=== PATIENT | female | born 1955 | race Caucasian/White ===

== ENCOUNTER 2018-10-02 02:23 | Emergency (ER) | payer BC, OTHER ==
[~2018-10-02] VITALS: Ht 172.7 cm; Wt 81.6 kg
[2018-10-02 03:50] LABS: BASOPHILS % (AUTO) 0 % (0-10); EOSINOPHILS % (AUTO) 0 % (0-10); HEMATOCRIT 36 % (35-52); HEMOGLOBIN 11.3 G/DL (11.5-16.0); LYMPHOCYTES # (AUTO) 1.9 X 10^3 (1.0-4.0); LYMPHOCYTES % (AUTO) 33 % (12-44); MEAN CORPUSCULAR HEMOGLOBIN 26 PG (25-34); MEAN CORPUSCULAR HGB CONC 31 G/DL (32-36); MEAN CORPUSCULAR VOLUME 84 FL (80-99); MEAN PLATELET VOLUME 10.3 FL (7.4-10.4); MONOCYTES # (AUTO) 0.4 X 10^3 (0.0-1.0); MONOCYTES % (AUTO) 7 % (0-12); NEUTROPHILS # (AUTO) 3.5 X 10^3 (1.8-7.8); NEUTROPHILS % (AUTO) 60 % (42-75); PLATELET COUNT 290 10^3/uL (130-400); RED CELL DISTRIBUTION WIDTH 14.9 % (10.0-14.5); WHITE BLOOD COUNT 5.9 10^3/uL (4.3-11.0)
[2018-10-02] MEDS ORDERED: ANTACID SUSP 30 ML UDC (MYLANTA) PO ONE (04:00)
[2018-10-02] MEDS ORDERED: LIDOCAINE 2% VISCOUS 15 ML UDC PO ONE (04:00)
[2018-10-02 04:09] LABS: ALANINE AMINOTRANSFERASE 36 U/L (0-55); ALBUMIN 4.5 GM/DL (3.2-4.5); ALKALINE PHOSPHATASE 44 U/L (40-136); BILIRUBIN,TOTAL 0.3 MG/DL (0.1-1.0); BUN/CREATININE RATIO 25; CALCIUM 9.3 MG/DL (8.5-10.1); CARBON DIOXIDE 24 MMOL/L (21-32); CHLORIDE 107 MMOL/L (98-107); GFR ESTIMATED > 60; GLUCOSE 137 MG/DL (70-105); LIPASE 14 U/L (8-78); POTASSIUM 3.8 MMOL/L (3.6-5.0); SODIUM 143 MMOL/L (135-145); TOTAL PROTEIN 7.5 GM/DL (6.4-8.2)
[2018-10-02] MEDS ORDERED: ONDANSETRON 4 MG/2 ML (SDV) Z0FRAN ONE (04:14)
[2018-10-02] MEDS ORDERED: ONDANSETRON 4 MG/2 ML (SDV) Z0FRAN IVP ONE (04:15)
[2018-10-02 04:31] LABS: INR 2.7 (0.8-1.4); PROTHROMBIN TIME PATIENT 29.2 SEC (12.2-14.7)
--- NOTE | 2018-10-02 04:45 | NUR ---
pt verbalized decreased with pain after po med.
--- NOTE | 2018-10-02 05:38 | ED Abdominal Pain ---
General Chief Complaint: Abdominal/GI Problems Stated Complaint: UPPER ABD PAIN,NAUSEA Source of Information: Patient Exam Limitations: No Limitations History of Present Illness Date Seen by Provider: Oct 02, 2018 Time Seen by Provider: 05:15 Initial Comments Here with report of upper abdominal pain and nausea. Onset a few hours ago. She states that she ate 2 slices of pizza and a couple dark chocolate covered blueberries before going to bed. She usually does not eat this leg. She woke up early this morning with severe upper abdominal pain and this caused her to present to the emergency department. She did have nausea associated with that. She's not had anything like this before. She is on Zantac twice daily as an agent to help with allergic reactions but is not on other PPI. She is previously been on omeprazole but she has not been on that for a while. Denies blood in her stool or stool changes. Last bowel movement was yesterday and was normal. Pain is gone currently at time of my evaluation after GI cocktail on arrival. Timing/Duration: 4-6 Hours Severity/Quality: Moderate Location: Epigastric Radiation: Back Modifying Factors: Worsens With Eating Associated Symptoms: Back Pain; No Chest Pain, No Fever/Chills; Nausea/Vomiting ; No Shortness of Air, No Swelling/Mass in Abdomen, No Weakness Allergies and Home Medications Allergies Coded Allergies: trazodone (Unverified Allergy, Severe, ANAPHYLAXIS, 10/02/18) Penicillins (Unverified Allergy, Mild, HIVES, 10/02/18) face and hands swelling aspirin (Unverified Allergy, Mild, 10/02/18) Face and throat swelled atorvastatin (Unverified Allergy, Mild, 10/02/18) ACHY BODY desipramine (Unverified Allergy, Mild, RASH, 10/02/18) diphenhydramine (Unverified Allergy, Mild, 10/02/18) EARS AND THROAT ITCHY hydrocodone (Unverified Allergy, Mild, 10/02/18) ITCHING melatonin (Unverified Allergy, Mild, 10/02/18) DIARRHEA nut - unspecified (Unverified Allergy, Mild, 10/02/18) polyethylene glycol 3350 (Unverified Allergy, Mild, 10/02/18) HEART RACED rivaroxaban (Unverified Allergy, Mild, 10/02/18) THROAT ITCHED AND SWELLING LIPS/FACE zolpidem (Unverified Allergy, Mild, 10/02/18) HEART RACED AFTER COUPLE TIMES TAKEN methocarbamol (Unverified Allergy, Unknown, HIVES, 10/02/18) Patient Home Medication List Home Medication List Reviewed: Yes Review of Systems Review of Systems Constitutional: see HPI; No chills, No fever EENTM: No Symptoms Reported Respiratory: No Symptoms Reported Cardiovascular: No Symptoms Reported Gastrointestinal: See HPI, Abdominal Pain, Nausea; Denies Vomiting Genitourinary: No Symptoms Reported Musculoskeletal: see HPI, back pain; No muscle pain Skin: no symptoms reported Psychiatric/Neurological: No Symptoms Reported Past Mjeeyuv-Xvyukr-Dopraf Hx Past Med/Social Hx: Reviewed Nursing Past Med/Soc Hx Patient Social History Alcohol Use: Denies Use Recreational Drug Use: No Smoking Status: Never a Smoker Recent Foreign Travel: No Contact w/Someone Who Travel: No Past Medical History Respiratory: No Cardiac: Yes Deep Vein Thrombosis, High Cholesterol, Palpitations Neurological: Yes Seizure Disorder Gastrointestinal: Yes Gastroesophageal Reflux Endocrine: Yes Hypothyroidsim Integumentary: Yes Pruritis Family Medical History Reviewed Nursing Family Hx Physical Exam Vital Signs Capillary Refill : Height/Weight/BMI Height: '" Weight: lbs. oz. kg; BMI Method: General Appearance: WD/WN, no apparent distress HEENT: PERRL/EOMI, pharynx normal Neck: full range of motion, supple Respiratory: lungs clear, normal breath sounds Cardiovascular: regular rate, rhythm, no murmur Peripheral Pulses: 2+ Dorsalis Pedis (R), 2+ Left Dors-Pedis (L), 2+ Radial Pulses (R), 2+ Radial Pulses (L) Gastrointestinal: soft, tenderness Extremities: non-tender, normal inspection Back: normal inspection, no CVA tenderness, no vertebral tenderness Neurologic/Psychiatric: alert, oriented x 3 Skin: normal color, warm/dry Progress/Results/Core Measures Results/Orders Lab Results Laboratory Tests Test 10/02/18 03:40 Range/Units White Blood Count 5.9 4.3-11.0 10^3/uL Red Blood Count 4.34 L 4.35-5.85 10^6/uL Hemoglobin 11.3 L 11.5-16.0 G/DL Hematocrit 36 35-52 % Mean Corpuscular Volume 84 80-99 FL Mean Corpuscular Hemoglobin 26 25-34 PG Mean Corpuscular Hemoglobin Concent 31 L 32-36 G/DL Red Cell Distribution Width 14.9 H 10.0-14.5 % Platelet Count 290 130-400 10^3/uL Mean Platelet Volume 10.3 7.4-10.4 FL Neutrophils (%) (Auto) 60 42-75 % Lymphocytes (%) (Auto) 33 12-44 % Monocytes (%) (Auto) 7 0-12 % Eosinophils (%) (Auto) 0 0-10 % Basophils (%) (Auto) 0 0-10 % Neutrophils # (Auto) 3.5 1.8-7.8 X 10^3 Lymphocytes # (Auto) 1.9 1.0-4.0 X 10^3 Monocytes # (Auto) 0.4 0.0-1.0 X 10^3 Eosinophils # (Auto) 0.0 0.0-0.3 10^3/uL Basophils # (Auto) 0.0 0.0-0.1 10^3/uL Prothrombin Time 29.2 H 12.2-14.7 SEC INR Comment 2.7 H 0.8-1.4 Activated Partial Thromboplast Time 50 H 24-35 SEC Sodium Level 143 135-145 MMOL/L Potassium Level 3.8 3.6-5.0 MMOL/L Chloride Level 107 98-107 MMOL/L Carbon Dioxide Level 24 21-32 MMOL/L Anion Gap 12 5-14 MMOL/L Blood Urea Nitrogen 20 H 7-18 MG/DL Creatinine 0.80 0.60-1.30 MG/DL Estimat Glomerular Filtration Rate > 60 BUN/Creatinine Ratio 25 Glucose Level 137 H 70-105 MG/DL Calcium Level 9.3 8.5-10.1 MG/DL Corrected Calcium 8.9 8.5-10.1 MG/DL Total Bilirubin 0.3 0.1-1.0 MG/DL Aspartate Amino Transf (AST/SGOT) 77 H 5-34 U/L Alanine Aminotransferase (ALT/SGPT) 36 0-55 U/L Alkaline Phosphatase 44 40-136 U/L Troponin I < 0.028 <0.028 NG/ML Total Protein 7.5 6.4-8.2 GM/DL Albumin 4.5 3.2-4.5 GM/DL Lipase 14 8-78 U/L My Orders Orders - [place],JOHN D MD Saline Lock/Iv-Start (10/02/18 03:45) Cbc With Automated Diff (10/02/18 03:45) Comprehensive Metabolic Panel (10/02/18 03:45) Lipase (10/02/18 03:45) Lidocaine 2% Viscous 15 Ml (Xylocaine Vi (10/02/18 04:00) Antacid Suspension (Mylanta Suspension (10/02/18 04:00) Protime With Inr (10/02/18 04:13) Partial Thromboplastin Time (10/02/18 04:13) Troponin I (10/02/18 04:13) Ondansetron Injection (Zofran Injectio (10/02/18 04:15) Ekg Tracing (10/02/18 04:13) Ondansetron Injection (Zofran Injectio (10/02/18 04:14) Medications Given in ED Current Medications Medications Dose Ordered Sig/Jose Route Start Time Stop Time Status Last Admin Dose Admin Al Hydrox/Mg Hydrox/Simethicone 30 ml ONCE ONCE PO 10/02/18 04:00 10/02/18 04:01 DC 10/02/18 04:12 30 ML Lidocaine HCl 15 ml ONCE ONCE PO 10/02/18 04:00 10/02/18 04:01 DC 10/02/18 04:12 15 ML Ondansetron HCl 4 mg ONCE ONCE IVP 10/02/18 04:15 10/02/18 04:16 DC 10/02/18 04:27 4 MG Progress Progress Note : Progress Note Seen and evaluated. Labs, IV injection GI cocktail ordered. This reviewed at time of evaluation. Pain is completely resolved. We did discuss further evaluation including ultrasound that she feels better now and would like to do that outpatient and I believe it is safe to do so. Discharged home with return precautions. Patient verbalize understanding instructions and agreement with plan. Departure Impression Primary Impression: Epigastric abdominal pain Disposition: HOME, SELF-CARE Condition: Improved Departure-Patient Inst. Decision time for Depature: 05:39 Referrals: ALBERT GREENE MD (PCP/Family) Primary Care Physician Patient Instructions: Acute Abdomen (Belly Pain), Adult (DC) Add. Discharge Instructions: All discharge instructions reviewed with patient and/or family. Voiced understanding. You should follow up with your doctor and discuss ultrasound to evaluate the gallbladder as a cause of the problem. If this is negative and or if indicated you should also consider follow-up for further evaluation including upper endoscopy (scope) to evaluate your stomach to check for ulcers. You should avoid fatty food and you should avoid eating late. You may initiate omeprazole 20 mg daily for stomach upset as well. Return for worse pain, fever, vomiting, weakness, breathing problems or other concerns as needed. JOHN RODRÍGUEZ MD Oct 02, 2018 05:38
[2018-10-02 05:48] VITALS: BP 150/80
[2018-10-02] MEDS ORDERED: EPIN0.3P2 (07:57)
[2018-10-02] MEDS ORDERED: CETI10CA (07:57)
[2018-10-02] MEDS ORDERED: MULT-974 (07:57)
[2018-10-02] MEDS ORDERED: LEVO150T4 PO (07:57)
[2018-10-02] MEDS ORDERED: CRB200T PO (07:57)
[2018-10-02] MEDS ORDERED: WARF1TAB82 (07:57)
[2018-10-02] MEDS ORDERED: FENO160T37 (07:57)
[2018-10-02] MEDS ORDERED: ACET-2267 PO (07:57)
[2018-10-02] MEDS ORDERED: RANI-515 (07:57)
[2018-10-02] MEDS ORDERED: WARF4TAB70 (07:57)
== END 2018-10-02 05:48 | disposition home or self-care (01) ==
LOC: ER 02:25
DX: R10.13 Epigastric pain (principal); E78.00 Pure hypercholesterolemia, unspecified; G40.909 Epilepsy, unspecified, not intractable, without status epilepticus; K21.9 Gastro-esophageal reflux disease without esophagitis; E03.9 Hypothyroidism, unspecified; Z88.0 Allergy status to penicillin; Z88.6 Allergy status to analgesic agent; Z88.8 Allergy status to other drugs, medicaments and biological substances; Z88.5 Allergy status to narcotic agent; Z86.718 Personal history of other venous thrombosis and embolism
CPT/HCPCS: 36415; 80053; 83690; 84484; 85025; 85610; 85730; 93005

== ENCOUNTER → 2020-10-06 | Outpatient (CLI) | payer BC ==
[~2020-10-06] MED LIST: ACET-2267 PO; CETI10CA; CRB200T PO; EPIN0.3P2; FENO160T37; LEVO150T4 PO; MULT-974; RANI-609; WARF4TAB3; WRF1T
--- NOTE | 2020-10-07 12:23 | Diagnostic Imaging Report ---
INDICATION: Routine screening. Comparison is made with prior mammogram from 02/23/2017 and 09/29/2015. 2-D and 3-D bilateral screening mammography was performed with CAD. Scattered fibroglandular densities are identified bilaterally. The parenchymal pattern is stable. No mass or malignant-appearing microcalcifications are seen. Axillae are unremarkable. IMPRESSION: BI-RADS Category 1 No mammographic features suspicious for malignancy are identified. ACR BI-RADS Category 1: Negative. Result letter will be mailed to the patient. Note: At least 10% of breast cancer is not imaged by mammography. Dictated by: Dictated on workstation # [id number]
== END ==
LOC: RAD 13:54
PROVIDERS: ATTEND Student in an Organized Health Care Education/Training Program
DX: Z12.31 Encounter for screening mammogram for malignant neoplasm of breast (principal)
CPT/HCPCS: 77063; 77067

== ENCOUNTER → 2020-11-20 | Outpatient (CLI) | payer BC ==
[2020-11-20 09:26] LABS: BASOPHILS % (AUTO) 0 % (0-10); EOSINOPHILS % (AUTO) 0 % (0-10); HEMATOCRIT 39 % (35-52); HEMOGLOBIN 12.2 g/dL (11.5-16.0); LYMPHOCYTES # (AUTO) 1.7 10^3/uL (1.0-4.0); LYMPHOCYTES % (AUTO) 40 % (12-44); MEAN CORPUSCULAR HEMOGLOBIN 27 pg (25-34); MEAN CORPUSCULAR HGB CONC 31 g/dL (32-36); MEAN CORPUSCULAR VOLUME 89 fL (80-99); MEAN PLATELET VOLUME 10.7 fL (9.0-12.2); MONOCYTES # (AUTO) 0.3 10^3/uL (0.0-1.0); MONOCYTES % (AUTO) 8 % (0-12); NEUTROPHILS # (AUTO) 2.3 10^3/uL (1.8-7.8); NEUTROPHILS % (AUTO) 52 % (42-75); PLATELET COUNT 281 10^3/uL (130-400); WHITE BLOOD COUNT 4.4 10^3/uL (4.3-11.0)
[2020-11-20 09:35] LABS: ALANINE AMINOTRANSFERASE 24 U/L (0-55); ALBUMIN 4.6 GM/DL (3.2-4.5); ALKALINE PHOSPHATASE 43 U/L (40-136); AMYLASE 28 U/L (25-125); BILIRUBIN,TOTAL 0.2 MG/DL (0.1-1.0); BUN/CREATININE RATIO 16; CALCIUM 9.1 MG/DL (8.5-10.1); CARBON DIOXIDE 27 MMOL/L (21-32); CHLORIDE 107 MMOL/L (98-107); CREATININE SERUM 0.79 MG/DL (0.60-1.30); GFR ESTIMATED > 60; GLUCOSE 99 MG/DL (70-105); LIPASE 13 U/L (8-78); POTASSIUM 4.4 MMOL/L (3.6-5.0); SODIUM 142 MMOL/L (135-145); TOTAL PROTEIN 7.8 GM/DL (6.4-8.2)
== END ==
LOC: LAB 08:40
PROVIDERS: ATTEND Surgery
DX: R10.10 Upper abdominal pain, unspecified (principal)
CPT/HCPCS: 36415; 80053; 82150; 83690; 85025

== ENCOUNTER → 2020-11-21 | Outpatient (CLI) | payer BC ==
--- NOTE | 2020-11-21 10:05 | Diagnostic Imaging Report ---
PROCEDURE: US Gallbladder. TECHNIQUE: Multiple real-time grayscale images were obtained over the right upper quadrant in various projections. INDICATION: Right upper quadrant pain COMPARISON: There are no prior studies available for comparison. There are multiple gallstones within the gallbladder. The gallbladder wall does not appear thickened however and there is no pericholecystic fluid to suggest acute cholecystitis. The common bile duct is not dilated either. The liver is borderline enlarged and more echogenic than usually seen. The appearance of the liver does suggest fatty metamorphosis. There is no focal mass involving the liver and the biliary tree is not abnormally dilated. Spectral and color-flow imaging of the portal vein shows the vein is patent. The pancreas, the right kidney, the proximal aorta and inferior vena cava were unremarkable. IMPRESSION: 1. There is cholelithiasis but there is no evidence for acute cholecystitis and the common bile duct does not appear to be dilated. 2. If clinical concern regarding an acute abnormality of the gallbladder persists and further imaging is desired, then a nuclear medicine hepatobiliary scan would be recommended. 3. There is borderline hepatomegaly and fatty metamorphosis of the liver. Dictated by: Dictated on workstation # [id number]
== END ==
LOC: RAD 08:22
PROVIDERS: ATTEND Surgery
DX: K76.0 Fatty (change of) liver, not elsewhere classified (principal); K80.20 Calculus of gallbladder without cholecystitis without obstruction
CPT/HCPCS: 76705

== ENCOUNTER → 2021-01-13 | Outpatient (CLI) | payer BC ==
[~2021-01-13] VITALS: Ht 162 cm; Wt 91.0 kg
[~2021-01-13] MED LIST changes: +CATHETER FLUSH 10 ML SYR IV PRN; +REGADENOSON 0.4 MG/5 ML SYR (LEXISCAN) IV ONE
[2021-01-13 12:55] VITALS: BP 148/81
== END ==
LOC: CARD 11:30
PROVIDERS: ATTEND Internal Medicine Cardiovascular Disease
DX: R06.09 Other forms of dyspnea (principal); R00.2 Palpitations; R07.9 Chest pain, unspecified
CPT/HCPCS: 78452; 93017; 93225; 93226; 93306; A9502

== ENCOUNTER → 2022-06-15 | Outpatient (CLI) | payer BC ==
[~2022-06-15] MED LIST changes: -CATHETER FLUSH 10 ML SYR IV PRN; -REGADENOSON 0.4 MG/5 ML SYR (LEXISCAN) IV ONE
--- NOTE | 2022-06-15 15:46 | Diagnostic Imaging Report ---
EXAMINATION: Magnetic resonance imaging of the left shoulder without contrast. DATE: June 15, 2022. COMPARISON: None. HISTORY: 66-year-old female, left shoulder pain. TECHNIQUE: Magnetic Resonance Imaging sequences were performed of the shoulder without contrast. FINDINGS: ROTATOR CUFF, LIGAMENTS, TENDONS, AND MUSCLES: There is a roughly 4 mm wide approximately 25% partial thickness tear of the supraspinatus tendon, best demonstrated on coronal T2 fat saturation sequence image 12. The tear measures 6 mm in medial to lateral extent. There is mild infraspinatus tendinopathy and mild subscapularis tendinopathy. The teres minor tendon is intact. There is normal rotator cuff muscle bulk and signal. LONG HEAD OF BICEPS: The biceps labral attachment and long head of the biceps tendon are intact. The long head of the biceps tendon is normally positioned within the bicipital groove. GLENOHUMERAL JOINT: The humeral head is well positioned relative to the glenoid. The labrum is grossly intact. There is no identified paralabral cyst. The articular cartilage is grossly intact. There is no joint effusion. ACROMIOCLAVICULAR JOINT: The acromioclavicular joint is normally aligned. The coracoclavicular and coracoacromial ligaments are intact. There are mild acromioclavicular degenerative changes without large undersurface osteophyte. BONE: There is no os acromiale. There is no Hill-Sachs deformity. There is no acute fracture, bone contusion, or evidence of osteonecrosis. BURSAE AND SOFT TISSUES: The bursae and soft tissue surrounding the shoulder are unremarkable. IMPRESSION: 1. Approximately 4 mm wide 25% partial thickness articular sided tear of the supraspinatus tendon with the tear measuring 6 mm in medial to lateral extent. Infraspinatus and subscapularis tendinopathy. 2. Mild acromioclavicular degenerative changes without large undersurface osteophyte. 3. Grossly intact labrum and unremarkable additional glenohumeral joint assessment. 4. No acute fracture, bone contusion, or evidence of osteonecrosis. Dictated by: Dictated on workstation # [id number]
== END ==
LOC: RAD 14:00
PROVIDERS: ATTEND Family Medicine Sports Medicine
DX: M19.012 Primary osteoarthritis, left shoulder (principal); M75.42 Impingement syndrome of left shoulder; M75.112 Incomplete rotator cuff tear or rupture of left shoulder, not specified as traumatic
CPT/HCPCS: 73221